=== PATIENT | male | born 1990 | race Caucasian/White ===

== ENCOUNTER 2024-01-27 09:49 | Emergency (ER) | payer OTHER ==
[~2024-01-27] VITALS: Ht 185.4 cm; Wt 114.2 kg
[~2024-01-27 09:49] MED LIST: HYDR-4383 PO; METH4TAB81 PO
[2024-01-27 09:51] VITALS: BP 142/87; PULSE 109; RESP 18; O2SAT 95
[2024-01-27 11:14] LABS: BASOPHILS # (AUTO) 0.1 X10'3 (0-0.2); BASOPHILS % (AUTO) 0.9 % (0-1); EOSINOPHILS % (AUTO) 0.2 % (0-6); HEMATOCRIT 39.2 % (42.0-52.0); HEMOGLOBIN 13.3 g/dl (14.0-17.9); LYMPHOCYTES # (AUTO) 1.3 X10'3 (1.1-4.8); LYMPHOCYTES % (AUTO) 19.9 % (21-51); MEAN CORPUSCULAR HEMOGLOBIN 30.8 PG (27.0-31.0); MEAN CORPUSCULAR HGB CONC 33.8 g/dL (33.0-36.5); MEAN PLATELET VOLUME 9.1 FL (7.4-10.4); MONOCYTES # (AUTO) 0.5 X10'3 (0-0.9); MONOCYTES % (AUTO) 8.1 % (2-12); NEUTROPHILS # (AUTO) 4.6 X10'3 (1.8-7.7); NEUTROPHILS % (AUTO) 70.9 % (42-75); PLATELET COUNT 288 X10'3 (140-440); RED BLOOD COUNT 4.31 X10'6 (4.70-6.10); RED CELL DISTRIBUTION WIDTH 13.4 % (11.5-14.5); WHITE BLOOD COUNT 6.5 X10'3 (4.5-11.0)
[2024-01-27 11:22] LABS: ALBUMIN 3.3 G/DL (3.4-5.0); ANION GAP 9 (8-16); BLOOD UREA NITROGEN 10 MG/DL (7-18); BUN/CREATININE RATIO 11.5 (10.0-20.0); CALCIUM 9.3 MG/DL (8.5-10.1); CHLORIDE 101 MMOL/L (99-107); CREATININE 0.87 MG/DL (0.60-1.10); GLUCOSE 102 MG/DL (70-104); POTASSIUM 4.3 MMOL/L (3.5-5.1); SODIUM 138 MMOL/L (135-145); TOTAL CARBON DIOXIDE 28.4 MMOL/L (24-32); eCRCL 134 ML/MIN; eGFR > 90 ML/MIN
[2024-01-27] MEDS: methylPREDNISolone sod succ 125mg/2ml vial IM ONE (11:49)
[2024-01-27] MEDS ORDERED: CEPH-585 PO (11:55)
[2024-01-27] MEDS ORDERED: COLC0.6T72 PO (11:55)
[2024-01-27 11:59] VITALS: TEMP 98.4
== END 2024-01-27 12:02 | disposition home or self-care (01) ==
LOC: ER 09:50
DX: R22.41 Localized swelling, mass and lump, right lower limb (principal); M79.671 Pain in right foot; I10 Essential (primary) hypertension; Z88.1 Allergy status to other antibiotic agents; Z88.5 Allergy status to narcotic agent
CPT/HCPCS: 36415; 80048; 84550; 85025; 85651; 96372; 99283; J2919